=== PATIENT | female | born 1980 | race African-American/Black ===

== ENCOUNTER 2016-07-03 22:34 | Emergency (ER) | payer OTHER ==
[~2016-07-03] VITALS: Ht 160 cm; Wt 72.6 kg
[~2016-07-03 22:34] MED LIST: ASPIRIN; BACTRIM DS TAB1 EACH PO; CIPROFLOXACIN500 M1 PO; DOXYCYCLINE 10100 MG PO; KEFLEX500 MG PO; MACROBID 100 M100 M1 PO; NORCO 5-325 TA1 EACH PO; PREDNISONE 20 M20 MG PO; PREDNISONE 5 MG5 M1 PO; PYRIDIUM200 MG PO; ULTRAM 50MG TAB50 MG PO
[2016-07-03 23:21] LABS: URINE BILIRUBIN NEGATIVE (Negative); URINE BLOOD 3+ (Negative); URINE COLOR YELLOW; URINE GLUCOSE-RANDOM* NEGATIVE (Negative); URINE KETONES NEGATIVE (Negative); URINE NITRITE NEGATIVE (Negative); URINE PROTEIN (DIPSTICK) TRACE (Negative); URINE SPECIFIC GRAVITY >= 1.030 (1.003-1.035); URINE UROBILINOGEN 0.2 E.U./dl (0.2-1.0)
[2016-07-03 23:29] LABS: BACTERIA 1-9 Few /HPF (None Seen); CASTS None Seen /LPF (None Seen); CRYSTALS None Seen /LPF (None Seen); SQUAMOUS 4-10 Moderate /LPF (0-3); URINE RBC 3-10 Few /HPF (0-2); URINE WBC 0-5 Rare /HPF (0-5)
[2016-07-04 00:16] LABS: ABSOLUTE NEUTROPHILS 3.8 thou/uL (1.4-8.2); BASOPHILS 0.5 % (0.0-2.0); EOSINOPHILS 1.3 % (0.0-3.0); HEMATOCRIT 31.8 % (37.0-47.0); HEMOGLOBIN 10.7 gm/dL (12.0-15.0); MCH 29.4 pg (26.0-34.0); MCHC 33.5 g/dL (28.0-37.0); MCV 87.7 fL (80.0-100.0); MONOCYTES 7.7 % (1.0-8.0); PLATELET COUNT 251 thou/uL (150-400); POLYS 58.5 % (36.0-66.0); RBC 3.63 mil/uL (4.20-5.00); RDW 13.1 % (10.5-14.5); WBC 6.4 thou/uL (4.0-11.0)
[2016-07-04 00:21] LABS: MANUAL DIFF NO
[2016-07-04 00:27] LABS: CREATININE 0.8 mg/dL (0.6-1.0); POTASSIUM 3.1 mmol/L (3.5-5.1)
[2016-07-04 01:09] LABS: TOTAL BILIRUBIN 0.3 mg/dL (<0.1-1.0); TOTAL PROTEIN 7.5 g/dL (6.4-8.2)
[2016-07-04 02:13] VITALS: BP 131/70
== END 2016-07-04 02:14 | disposition home or self-care (01) ==
LOC: ER 22:34
PROVIDERS: Nurse Practitioner Family
DX: O20.0 Threatened abortion (principal); F17.210 Nicotine dependence, cigarettes, uncomplicated; Z3A.01 Less than 8 weeks gestation of pregnancy; Z88.0 Allergy status to penicillin; Z88.2 Allergy status to sulfonamides; Z88.5 Allergy status to narcotic agent; Z88.1 Allergy status to other antibiotic agents

== ENCOUNTER 2018-02-15 13:34 | Emergency (ER) | payer OTHER ==
[~2018-02-15] VITALS: Ht 160 cm; Wt 91.6 kg
[2018-02-15] MEDS ORDERED: CLEOCIN HCL150 MG PO (14:44)
[2018-02-15] MEDS ORDERED: TRAMADOL 50 MG50 MG PO (14:44)
[2018-02-15 15:13] VITALS: BP 139/84
== END 2018-02-15 15:15 | disposition home or self-care (01) ==
LOC: ER 13:34
DX: T81.41XA Infection following a procedure, superficial incisional surgical site, initial encounter (principal); L02.211 Cutaneous abscess of abdominal wall; F17.210 Nicotine dependence, cigarettes, uncomplicated; Z88.0 Allergy status to penicillin; Z88.2 Allergy status to sulfonamides; Z88.5 Allergy status to narcotic agent; Z88.8 Allergy status to other drugs, medicaments and biological substances